=== PATIENT | male | born 1985 | race Two or more races ===

== ENCOUNTER 2016-03-19 20:06 | Emergency (ER) | payer OTHER ==
[2016-03-19 23:15] LABS: SPECIFIC GRAVITY 1.025 (1.001-1.030); URINE BILIRUBIN NEGATIVE (NEGATIVE); URINE BLOOD NEGATIVE (NEGATIVE); URINE GLUCOSE (UA) NEGATIVE (NEGATIVE); URINE LEUKOCYTE ESTERASE NEGATIVE (NEGATIVE); URINE NITRITE NEGATIVE (NEGATIVE); URINE PROTEIN NEGATIVE (NEGATIVE)
[2016-03-19 23:17] LABS: URINE UROBILINOGEN 1 mg/dL (0-1 mg/dl)
[2016-03-19 23:27] LABS: URINE APPEARANCE CLEAR; URINE COLOR YELLOW
[2016-03-19] MEDS ORDERED: DEXAMETHASONE 4 MG TABLET ONE (23:31)
[2016-03-19] MEDS ORDERED: MORPHINE SULFATE 4 MG/ML SYRINGE ONE (23:31)
== END 2016-03-20 00:04 | disposition home or self-care (01) ==
LOC: ED 20:06
DX: M54.5 Low back pain (principal)
CPT/HCPCS: 81003; 99283 ×2; 96372; A9270; J2270